=== PATIENT | female | born 1995 | race Caucasian/White ===

== ENCOUNTER → 2020-12-29 10:56 | Outpatient (BNVA) | payer MEDICAID, SELFPAY | PROVIDERS: Visit Provider Advanced Practice Midwife | DX: Z32.01 Encounter for pregnancy test, result positive (principal); Z36.3 Encounter for antenatal screening for malformations | CPT/HCPCS: 81025; 99202 ==

== ENCOUNTER → 2021-01-12 10:15 | Outpatient (BNVA) | payer MEDICAID, SELFPAY | PROVIDERS: Visit Provider Advanced Practice Midwife | CPT/HCPCS: 99212 ==

== ENCOUNTER 2021-01-14 10:16 | Outpatient (REF) | payer MEDICAID, SELFPAY ==
[2021-01-14 11:42] LABS: Syphilis Screen Nonreactive (Nonreactive)
[2021-01-14 11:46] LABS: HBsAGNum1 0.16 S/CO (0.00-0.99); HIV AB/AG Nonreactive (Nonreactive); HIV Num 1 0.05 S/CO (0.00-0.99); Hepatitis B Surface Antigen Negative (Negative)
[2021-01-14 11:51] LABS: ~HepC Num1 0.11 S/CO (0.00-0.79); ~Hepatitis C Antibody Nonreactive (Nonreactive)
[2021-01-14 13:45] LABS: Amphetamine Screen Urine Not Detected (Not Detect); Barbiturates, Urine Not Detected (Not Detect); Benzodiazepines Screen Urine Not Detected (Not Detect); Cannabinoid Screen Urine POSITIVE (Not Detect); Cocaine Screen Urine Not Detected (Not Detect); Opiate Screen Urine Not Detected (Not Detect); Phencyclidine Screen Urine Not Detected (Not Detect)
== END 2021-01-14 10:17 | disposition home or self-care (01) ==
LOC: HO.LAB 10:16
PROVIDERS: Visit Provider Advanced Practice Midwife
DX: Z32.01 Encounter for pregnancy test, result positive (principal)
CPT/HCPCS: 80307; 86762; 86780; 86787; 86803; 86850; 86886; 86900; 86901; 87086; 87340; 87389

== ENCOUNTER 2021-01-17 14:01 | Outpatient (REF) | payer OTHER, SELFPAY ==
--- NOTE | ~2021-01-17 | US_ITS ---
EXAMINATION: US OBSTETRICAL ULTRASOUND CLINICAL INFORMATION: Encounter for screening for malformations. No heart tone heard in office. COMPARISON: None. LMP: 10/24/2020. Gestational age by maternal dates is 12 weeks 1 day. Estimated date of delivery by maternal dates is 07/31/2021. TECHNIQUE: Transabdominal 1st trimester OB ultrasound. FINDINGS: There is a single intrauterine gestational sac with visible yolk sac, embryo/fetus, and cardiac activity. There is no significant subchorionic hemorrhage or hematoma. HR: 179 beats per minute. CRL (crown rump length): 1.26 cm (7 weeks 4 days +/- 4 days). REI (estimated date of delivery): 09/01/2021 +/- 4 days. MATERNAL ADNEXA: The right maternal ovary measures 2.7 x 3.5 x 2.8 cm. There is a 2.1 x 1.9 x 1.9 cm slightly complex cyst. The left maternal ovary measures 2.1 x 2 x 2.3 cm. There is no significant maternal adnexal mass. No maternal pelvic ascites. US/US OB <= 14 weeks fetus IMPRESSION: 1. Single intrauterine gestation with ultrasound gestational age of 7 weeks 4 days +/- 4 days. 2. Estimated date of delivery is 09/01/2021 +/- 4 days.
[2021-01-17 16:01] LABS: MANUAL DIFF FLAG NO
[2021-01-17 16:04] LABS: Basophils Absolute Auto 0.1 X10*3/uL (0.0-0.2); Basophils Percent Auto 0.5 % (0-2); Eosinophils Absolute Auto 0.2 X10*3/uL (0.0-0.4); Eosinophils Percent Auto 1.9 % (0-4); Hematocrit 37.7 % (37-47); Hemoglobin 13.2 g/dl (12.0-16.0); Imm Gran Abs Auto 0.04 X10*3/uL (0.00-0.03); Imm Gran Pct Auto 0.4 % (0.0-0.4); Lymphocytes Absolute Auto 3.1 X10*3/uL (1.2-4.9); Mean Corpuscular Hemoglobin 31.9 pg (27.0-33.0); Mean Corpuscular Volume 91.1 fL (80-98); Mean Platelet Volume 9.9 fL (9.4-12.3); Monocytes Absolute Auto 0.8 X10*3/uL (0.1-1.2); Monocytes Percent Auto 7.5 % (2-11); Neutrophils Absolute Auto 6.8 X10*3/uL (2.0-8.3); Neutrophils Percent Auto 61.7 % (45-73); Platelet Count 254 X10*3/uL (160-400); Red Blood Count 4.14 X10*6/uL (4.20-5.50); Red Cell Distribution Width 12.7 % (11.0-16.0)
[2021-01-18 09:50] LABS: CT PCR NOT DETECTED (Not Detect.); NG PCR NOT DETECTED (Not Detect.)
== END 2021-01-17 14:02 | disposition home or self-care (01) ==
LOC: HO.LAB 14:01
PROVIDERS: Visit Provider Advanced Practice Midwife
DX: O36.5910 Maternal care for other known or suspected poor fetal growth, first trimester, not applicable or unspecified (principal); O99.321 Drug use complicating pregnancy, first trimester; O26.891 Other specified pregnancy related conditions, first trimester; F12.90 Cannabis use, unspecified, uncomplicated; R10.2 Pelvic and perineal pain; Z20.2 Contact with and (suspected) exposure to infections with a predominantly sexual mode of transmission; Z3A.12 12 weeks gestation of pregnancy
CPT/HCPCS: 36415; 76801; 81003; 85025; 87491; 87591; 99212

== ENCOUNTER → 2021-02-24 08:32 | Outpatient (BNVA) | payer OTHER, SELFPAY | PROVIDERS: Visit Provider Advanced Practice Midwife | DX: O99.619 Diseases of the digestive system complicating pregnancy, unspecified trimester (principal); K59.00 Constipation, unspecified; Z3A.13 13 weeks gestation of pregnancy | CPT/HCPCS: 81003; 99212 ==

== ENCOUNTER 2021-02-25 10:56 | Outpatient (REF) | payer OTHER, SELFPAY ==
--- NOTE | ~2021-02-25 | US_ITS ---
EXAMINATION: OBSTETRICAL ULTRASOUND, FIRST TRIMESTER HISTORY: 25-year-old at 13.1 weeks of gestation NT screening COMPARISON: 01/17/2021 TECHNIQUE: Real time transabdominal imaging with color and M-mode Doppler. FINDINGS: A single, live IUP CRL of 78.7 mm c/w 14.0wks is noted. Heart Rate: 144 beats per minute. Normal yolk sac seen. NT was 1.33.mm. NB Present The embryo appears sonographically wnl for this GA. Both maternal ovaries are seen and appear normal. GESTATIONAL AGE: 1. Established GA: 13.1 wks 2. GA from [facility]: 14.0 wks ESTIMATED DATE OF DELIVERY: 1. Established REI: 09/01/2021 2. REI from [facility]: 08/26/2021 US/US OB 1T nuc measure IMPRESSION: 1. A single live IUP 2. Size equals dates 3. NT of 1.33 mm MFM Consultation: According to the patient, she has older brother born with isolated soft cleft palate. After the repair, he is doing well. I informed the patient that the isolated cleft palate is the multi genetic and multifactorial events. Since it was her brother, the risk to her fetus is no greater than that of the general population. Soft palate is not visible on ultrasound. MRI with REI of the modality that can visualize the soft palate with confidence. I reassured her that at the time of the survey at approximately 18-19 weeks, we should be able to detect majority of cleft lip and majority of hard palate defect. I reviewed the ultrasound findings along with significance of NT measurement. The NT of less than 3mm is generally reassuring. However, the sensitivity for T21 detection is only 60%. I reviewed the availability of serum aneuploidy screening which includes cell-free DNA and placental protein based tests. I discussed the sensitivity, false-positive rate, and other limitations associated with each test. I also reviewed the availability of invasive diagnostic tests that are associated small but definite risk of miscarriage. We also reviewed the differences between screening tests and diagnostic tests. After our discussion, she opted for the First trimester screening that is based on cell-free DNA or non-invasive testing (NIPT). The result will be faxed to your office in approximately 7 days. A follow up at 18-20 weeks for survey has been scheduled. Thank you very much for this referral. Total time 30 minutes. The time spent was devoted to counseling the patient about the disease and diagnosis, coordinating care including reviewing her records, pertinent lab data and studies, as well as discussing diagnostic evaluation and workup, plan therapeutic interventions and future disposition of care. This includes any additional research needed to obtain further information in formulating the plan of care of this patient. This note was generated with a voice recognition program. Please excuse any errors which may have been overlooked during my review of this note. Sometimes these errors may affect the content or meaning of a given sentence.
== END 2021-02-25 10:57 | disposition home or self-care (01) ==
LOC: HO.US 10:56
PROVIDERS: Visit Provider Advanced Practice Midwife
DX: Z36.82 Encounter for antenatal screening for nuchal translucency (principal)
CPT/HCPCS: 76813

== ENCOUNTER → 2021-03-24 08:37 | Outpatient (BNVA) | payer OTHER, SELFPAY | PROVIDERS: Visit Provider Advanced Practice Midwife | DX: Z34.92 Encounter for supervision of normal pregnancy, unspecified, second trimester (principal); Z3A.17 17 weeks gestation of pregnancy; Z36.3 Encounter for antenatal screening for malformations | CPT/HCPCS: 81003; 99212 ==

== ENCOUNTER 2021-04-01 08:30 | Outpatient (REF) | payer OTHER, SELFPAY ==
--- NOTE | ~2021-04-01 | US_ITS ---
EXAMINATION: US OBSTETRICAL CLINICAL INFORMATION: 25-year-old at 18.1 weeks of gestation Screening for anomaly COMPARISON: 02/25/2021 TECHNIQUE: Real-time transabdominal ultrasound was performed using C1-5 megahertz transducer. FINDINGS: A single, active, fetus is seen in breech presentation. The placenta is posterior without previa, and the amniotic fluid volume is wnl. MEASUREMENTS: 1. Biparietal Diameter: 4.2 cm; 18.5 wks 2. Occipital Frontal Diameter: 4.4 cm 3. Head Circumference: 16.5 cm; 19.2 wks 4. Abdominal Circumference: 14.3 cm; 19.5 wks 5. Femur Length: 2.93 cm; 19.1 wks 6. Humerus Length: 2.8 cm; 19.2 wks 7. Ulna Length: 2.5 cm; 19.0 wks 8. Lateral ventricle: 0.5 cm 9. Cerebellum: 1.9 cm; 19.4 wks 10. Cisterna Magna: 0.5 cm 11. Nuchal Fold: 3.2 mm 12. Heart Rate: 142 beats per minute Rt ovary: Unable to visualize Lt ovary: normal Cervical length 3.5 cm on T/A. GESTATIONAL AGE: 1. Established GA: 18.1 wks 2. GA from [facility]: 19.2 wks ESTIMATED DATE OF DELIVERY: 1. Established REI: 09/01/2021 2. REI from [facility]: 08/24/2021 ANATOMY: The visualized anatomy includes but not limited to: 1. Cranium: Normal 2. Intracranial anatomy: cavum septum pellucidi, lateral ventricles, choroid plexus, cerebellum, posterior fossa, third and fourth ventricles. 3. face: orbits, lip/palate, profile, nasal bone 4. Heart: four-chamber view of the heart, ventricular septum, foramen ovale, pulmonary vein, left and right outflow tracts, three-vessel view, 3 vessel trachea view, aortic and ductal arches, situs.. 5. Diaphragm: Normal 6. Abdominal wall: Normal 7. Cord Insertion: Normal 8. Spine: Cervical, thoracic, lumbar, sacral. 9. Stomach: Normal size and shape 10. Right Kidney: Normal 11. Left Kidney: Normal 12. 3 vessel cord: Normal 13. Upper extremity: Open hands, fifth digit. 14. Lower extremity: Tibia, fibula, bilateral feet. 15. Bladder: Normal 16. Genitalia: Male, patient aware US/US OB /maternal detail IMPRESSION: 1. Single, living, intrauterine with appropriate biometry. 2. Normal survey DISCUSSION: I reviewed today's ultrasound findings. We discussed the limitations of ultrasound in diagnosing aneuploidy and other congenital abnormalities. I reviewed the differences between screening test and diagnostic test. Amniocentesis was discussed and declined. She was informed that the baseline incidence of congenital abnormalities is approximately 3-5%. Not all these conditions are diagnosable in utero. RECOMMENDATIONS: 1. Follow-up when necessary. Thank you for allowing me to participate in her care. Total time 20 minutes. The time spent was devoted to counseling the patient about the disease and diagnosis, coordinating care including reviewing her records, pertinent lab data and studies, as well as discussing diagnostic evaluation and workup, plan therapeutic interventions and future disposition of care. This includes any additional research needed to obtain further information in formulating the plan of care of this patient. This note was generated with a voice recognition program. Please excuse any errors which may have been overlooked during my review of this note. Sometimes these errors may affect the content or meaning of a given sentence.
== END 2021-04-01 08:31 | disposition home or self-care (01) ==
LOC: HO.US 08:30
PROVIDERS: Visit Provider Obstetrics & Gynecology
DX: Z34.92 Encounter for supervision of normal pregnancy, unspecified, second trimester (principal); Z36.3 Encounter for antenatal screening for malformations
CPT/HCPCS: 76811

== ENCOUNTER → 2021-04-21 08:37 | Outpatient (BNVA) | payer OTHER, SELFPAY | PROVIDERS: Visit Provider Advanced Practice Midwife | DX: Z34.92 Encounter for supervision of normal pregnancy, unspecified, second trimester (principal); Z3A.21 21 weeks gestation of pregnancy | CPT/HCPCS: 81003; 99212 ==

== ENCOUNTER → 2021-05-19 08:12 | Outpatient (BNVA) | payer OTHER, SELFPAY | PROVIDERS: Visit Provider Advanced Practice Midwife | DX: Z34.92 Encounter for supervision of normal pregnancy, unspecified, second trimester (principal) | CPT/HCPCS: 99212 ==

== ENCOUNTER 2021-06-06 08:37 | Outpatient (REF) | payer OTHER, SELFPAY ==
[2021-06-06 10:14] LABS: Hemoglobin 12.6 g/dl (12.0-16.0); Mean Corpuscular HGB Conc 33.2 g/dl (31.0-35.0); Mean Corpuscular Hemoglobin 30.7 pg (27.0-33.0); Mean Corpuscular Volume 92.5 fL (80-98); Mean Platelet Volume 9.4 fL (9.4-12.3); Platelet Count 224 X10*3/uL (160-400); Red Blood Count 4.11 X10*6/uL (4.20-5.50); Red Cell Distribution Width 12.4 % (11.0-16.0); White Blood Count 9.7 X10*3/uL (4.8-10.8)
[2021-06-06 10:34] LABS: Glucose 1 Hour PP 50gm Dose 104 mg/dL (60-140)
[2021-06-06 11:02] LABS: Syphilis Screen Nonreactive (Nonreactive)
== END 2021-06-06 08:38 | disposition home or self-care (01) ==
LOC: HO.LAB 08:37
PROVIDERS: Visit Provider Advanced Practice Midwife
DX: Z34.92 Encounter for supervision of normal pregnancy, unspecified, second trimester (principal); Z20.2 Contact with and (suspected) exposure to infections with a predominantly sexual mode of transmission
CPT/HCPCS: 36415; 85027; 86780

== ENCOUNTER → 2021-06-16 08:09 | Outpatient (BNVA) | payer OTHER, SELFPAY | PROVIDERS: Visit Provider Advanced Practice Midwife | DX: O99.323 Drug use complicating pregnancy, third trimester (principal); F12.90 Cannabis use, unspecified, uncomplicated; Z3A.29 29 weeks gestation of pregnancy | CPT/HCPCS: 99212 ==

== ENCOUNTER → 2021-07-01 08:10 | Outpatient (BNVA) | payer OTHER, SELFPAY | PROVIDERS: Visit Provider Advanced Practice Midwife | DX: O99.213 Obesity complicating pregnancy, third trimester (principal); Z3A.31 31 weeks gestation of pregnancy | CPT/HCPCS: 81003; 99212 ==

== ENCOUNTER 2021-07-15 08:33 | Outpatient (REF) | payer OTHER, SELFPAY ==
--- NOTE | ~2021-07-15 | US_ITS ---
EXAMINATION: OBSTETRICAL ULTRASOUND, Follow up HISTORY: 25-year-old at the 33.1 weeks of gestation Size date discrepancy High BMI COMPARISON: 04/01/2021 TECHNIQUE: Real time transabdominal imaging with color and M-mode Doppler. PRESENTATION: Vertex PLACENTA LOCATION: Fundal AMNIOTIC FLUID: FELICE 11.2 MEASUREMENTS: 1. Biparietal Diameter: 8.8 cm; 25.6 wks 2. Head Circumference: 32.5 cm; 36.6 wks 3. Abdominal Circumference: 29.1 cm; 33.1 wks 4. Femur Length: 6.4 cm; 33.0 wks 5. Heart Rate: 146 beats per minute WEIGHT: EFW: 2244 grams (4 lbs 15 oz) -- 53 %. BIOPHYSICAL PROFILE: Motion: 2 Tone: 2 Breathin Amniotic Fluid: 2 Total score: 06/05 GESTATIONAL AGE: 1. Established GA: 33.1 wks 2. GA from A: 34.5 wks ESTIMATED DATE OF DELIVERY: 1. Established REI: 09/01/2021 2. REI from [facility]: 08/21/2021 US/US OB follow up IMPRESSION: 1. A single active fetus is in vertex presentation 2. Size equals dates 3. Biophysical profile of 06/05 Thank you very much for this referral. This note was generated with a voice recognition program. Please excuse any errors which may have been overlooked during my review of this note. Sometimes these errors may affect the content or meaning of a given sentence.
== END 2021-07-15 08:34 | disposition home or self-care (01) ==
LOC: HO.US 08:33
PROVIDERS: Visit Provider Advanced Practice Midwife
DX: O99.213 Obesity complicating pregnancy, third trimester (principal); Z3A.33 33 weeks gestation of pregnancy
CPT/HCPCS: 76816

== ENCOUNTER → 2021-07-20 10:48 | Outpatient (BNVA) | payer OTHER, SELFPAY | PROVIDERS: Visit Provider Advanced Practice Midwife | DX: Z34.83 Encounter for supervision of other normal pregnancy, third trimester (principal); Z3A.33 33 weeks gestation of pregnancy | CPT/HCPCS: 99212 ==

== ENCOUNTER 2021-08-03 08:52 | Outpatient (REF) | payer OTHER, SELFPAY ==
[2021-08-04 02:51] LABS: CT PCR NOT DETECTED (Not Detect.); NG PCR NOT DETECTED (Not Detect.)
[2021-08-04 10:37] LABS: BV Int Neg Control Negative (Negative); BV Int Pos Control Positive (Positive)
== END 2021-08-03 08:53 | disposition home or self-care (01) ==
LOC: HO.LAB 08:52
PROVIDERS: Visit Provider Advanced Practice Midwife
DX: Z34.93 Encounter for supervision of normal pregnancy, unspecified, third trimester (principal); Z20.2 Contact with and (suspected) exposure to infections with a predominantly sexual mode of transmission
CPT/HCPCS: 81003; 87081; 87480; 87491; 87510; 87591; 87660; 99212

== ENCOUNTER → 2021-08-10 08:44 | Outpatient (BNVA) | payer OTHER, SELFPAY | PROVIDERS: Visit Provider Advanced Practice Midwife | DX: Z34.83 Encounter for supervision of other normal pregnancy, third trimester (principal); Z3A.36 36 weeks gestation of pregnancy | CPT/HCPCS: 81003; 90471; 90715; 99212 ==

== ENCOUNTER → 2021-08-17 09:11 | Outpatient (BNVA) | payer OTHER, SELFPAY | PROVIDERS: Visit Provider Advanced Practice Midwife | DX: Z34.83 Encounter for supervision of other normal pregnancy, third trimester (principal); Z3A.37 37 weeks gestation of pregnancy | CPT/HCPCS: 81003; 99212 ==

== ENCOUNTER → 2021-08-24 08:29 | Outpatient (BNVA) | payer OTHER, SELFPAY | PROVIDERS: Visit Provider Advanced Practice Midwife | DX: Z34.83 Encounter for supervision of other normal pregnancy, third trimester (principal); Z3A.38 38 weeks gestation of pregnancy | CPT/HCPCS: 81003; 99212 ==

== ENCOUNTER → 2021-08-31 08:44 | Outpatient (BNVA) | payer OTHER, SELFPAY | PROVIDERS: Visit Provider Advanced Practice Midwife | DX: Z34.83 Encounter for supervision of other normal pregnancy, third trimester (principal); Z3A.39 39 weeks gestation of pregnancy | CPT/HCPCS: 81003; 99212 ==

== ENCOUNTER → 2021-10-12 10:48 | Outpatient (BNVA) | payer OTHER, SELFPAY | PROVIDERS: Visit Provider Advanced Practice Midwife | DX: Z30.09 Encounter for other general counseling and advice on contraception (principal); Z39.2 Encounter for routine postpartum follow-up | CPT/HCPCS: 99212 ==

== ENCOUNTER 2021-12-26 14:43 | Outpatient (REF) | payer OTHER, SELFPAY | END 2021-12-26 14:44 | disposition home or self-care (01) | LOC: HO.LAB 14:43 | PROVIDERS: Visit Provider Advanced Practice Midwife | DX: Z01.419 Encounter for gynecological examination (general) (routine) without abnormal findings (principal) | CPT/HCPCS: 81025; 88142 ==

== ENCOUNTER → 2023-01-01 13:06 | Outpatient (BNVA) | payer OTHER, SELFPAY | PROVIDERS: Visit Provider Advanced Practice Midwife | DX: Z13.89 Encounter for screening for other disorder (principal) ==

== ENCOUNTER 2023-04-03 13:43 | Outpatient (REF) | payer OTHER, SELFPAY ==
[2023-04-04 06:11] LABS: CT PCR NOT DETECTED (Not Detect.); NG PCR NOT DETECTED (Not Detect.)
[2023-04-04 12:37] LABS: BV Int Neg Control Negative (Negative); BV Int Pos Control Positive (Positive)
== END 2023-04-03 13:44 | disposition home or self-care (01) ==
LOC: HO.LNP 13:43
PROVIDERS: Visit Provider Advanced Practice Midwife
DX: N89.8 Other specified noninflammatory disorders of vagina (principal); Z20.2 Contact with and (suspected) exposure to infections with a predominantly sexual mode of transmission; Z30.9 Encounter for contraceptive management, unspecified
CPT/HCPCS: 0353U; 87480; 87510; 87660; 99212

== ENCOUNTER 2023-04-03 14:23 | Outpatient (REF) | payer OTHER, SELFPAY | END 2023-04-03 14:24 | disposition home or self-care (01) | LOC: HO.LAB 14:23 | PROVIDERS: Visit Provider Advanced Practice Midwife | DX: Z13.89 Encounter for screening for other disorder (principal) ==

== ENCOUNTER 2024-01-29 13:16 | Outpatient (AMB) | payer OTHER, SELFPAY ==
[2024-01-29 13:28] VITALS: BP 118/70; BMI 27.9
--- NOTE | 2024-01-29 13:28 | A.OFFVIS_ITS ---
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 She does not have a primary care provider she has no health concerns she currently is sexually active and she has a new partner who is not the father of her baby they generally use condoms but sometimes they just use withdrawal. She is wondering why her discharge is as much as it is and if that is normal. Full discussion took pace in this visit about the normal variation of cervical mucus and vaginal discharge and all of the factors that can influence it including timing in the cycle, addition of other partner secretions changes to discharge over lifetime and after childbirth and various changes in jeremias that can influence it both normal and abnormal. She is lost all of her ?baby weight? but she does not think she did anything different other than she is very busy working 2 jobs and parenting. [facility] Medical History COVID-19 vaccine administered Family History Mother COPD (chronic obstructive pulmonary disease) Father No problems noted. Maternal Grandmother Diabetes Maternal Grandfather Cardiac disease Brother No problems noted. Brother Asthma Paternal Grandmother No problems noted. Paternal Grandfather Lung abnormality Social History Household Members: Significant Other Both parents involved: Yes Alcohol intake: current Alcohol intake frequency: holidays/special occasions only Patient Tobacco Use Status: Never used Tobacco Substance Use Type: Marijuana Trauma History: none Special jim needs: No Agree to transfusion: Yes Gender identity: Female Female Reproductive History Menstrual Age of Menarche: 16 Duration of menses: 3-5 days Date of last menstrual period: 01/16/24 control method: none Total pregnancies: 2 Full term: 1 Date of last pap smear: 12/27/21 (negative,previous pap,2019,WNL) History of abnormal pap smear: No Physical Exam Vital Signs: Last Vital Signs BP 118/70 01/29/24 13:28 BMI result Body Mass Index 27.9 Assessment & Plan Assessment & Plan (1) Cervical cancer screening: Comment: 12/26/2021 Pap equals negative. Code(s): Z12.4 - Encounter for screening for malignant neoplasm of cervix (2) Well woman exam with routine gynecological exam: Code(s): Z01.419 - Encounter for gynecological examination (general) (routine) without abnormal findings (3) control counseling: Comment: Teaching done in detail about cycle awareness and signs and symptoms of ovulation and fertility and changes in discharge and how 1 feels. 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 She does not have a primary care provider she has no health concerns she currently is sexually active and she has a new partner who is not the father of her baby they generally use condoms but sometimes they just use withdrawal. She is wondering why her discharge is as much as it is and if that is normal. Full discussion took pace in this visit about the normal variation of cervical mucus and vaginal discharge and all of the factors that can influence it including timing in the cycle, addition of other partner secretions changes to discharge over lifetime and after childbirth and various changes in jeremias that can influence it both normal and abnormal. -----Discussed in this visit the following: healthy balanced diet, regular and consistent exercise, getting recommended health screens, doing the best she can for her particular health concerns, kegel exercises, pap smear screening and followup recommendations, mammography screening and SBE, normal changes in cycles in her life stage--- . Discussed the normal menstrual cycles, in terms of length of time for each part of the cycle, range of experiences for bleeding/periods, cramping and clots and the various ways of handling all of these including the various menstrual products available today and common use of non inflammatory medications such as ibuprofen to help with the cramping, and changes in vaginal and cervical discharge that occur throughout the changes in the menstrual cycle. Also discussed what is happening in the ovaries, with preparing to ovulate, ovulation, and what happens afterward as well. Discussed signs of ovulation including fertile appearing mucus, libido changes, breast changes, ovulatory pain and twinges, and the optimal /most risky times to become . Reviewed that menstrual cycles do not obey the printed c alendar, but rather follow the body's own cycle discussed what can sometimes happen if the cycle is interrupted by other health events such as anovulatory cycles. Discussed other metabolic changes that have a very profound effect on menstrual cycles including weight and the increased hormones that occur in that setting.Discussed our normal vaginal jeremias and the wide variety of abundant bacteria and fungus I and mucus components that may get up in a complex changing environment responding to anything that we put in and substances we may use for cleansing or wiping as well as sexual intercourse and any introduced bacteria and viruses. Discussed the hormonal shifts that happen through a normal menstrual cycle contributing to changes in the vaginal discharge from clear after the the. To clear and white slippery and abundant like egg white around the time of ovulation, followed by a thickening and drying of the scant white mucus afterwards until a new. Comes. All of these changes are responding to the hormonal shifts in our cycle. Also discussed the limitations of our testing, which are testing for the DNA of the following microbes. Currently, one of the tests we have includes a test that tests for Gardnerella, rios, and trichomoniasis (which is an STD). The other test we use tests concurrently for the presence of chlamydia and gonorrhea. As both of these are not normal vaginal jeremias, but instead are only sexually transmitted they are in fact in STD or STI, and do need to be treated as well as the partner needs to be treated The presence of Gardnerella does not necessarily mean that we have bacterial vaginosis but the syndrome of bacterial vaginosis includes the creamy adherent discharge that clings to the epithelial cells of the vaginal wall and coats the cells with bacteria and Im part fishy odor when the pH of the environment is altered by either menstrual flow urine or semen or other products. If this discharge is also accompanied by itching and discomfort and any other symptoms than it is worth treating . The presence of Rios alone does not necessarily mean a yeast infection but if there is itching burning vaginal redness and irritation then then that is an indication of a yeast infection and is definitely worth treating. Both of these conditions can be in part prevented by use of cotton under clothing, avoidance of tight clothing in general allowing air to vaginal areas and vulva avoidance of other soaps and scented products and chemicals, and condom use. In addition avoidance of menstrual sanitary products like pads and panty liners can contribute to better health as well. Patient to get portal info at the front end developer designer as well as any available info about PCC practices. She thought she might be interested in getting blood work for ST Is so I have ordered those those results will be available on the portal although we would certainly notify her about anything positive. Pap smear if normal should be resulted in a letter. Strongly suggested getting to know her cycle in detail and writing down the dates so she can follow trends over time. Orders: Orders Hepatitis B Surface Antigen Today Z01.419 - Encounter for gynecological examination (general) (routine) without abnormal findings, Z12.4 - Encounter for screening for malignant neoplasm of cervix, Z30.09 - Encounter for other general counseling and advice on contraception Hepatitis C Antibody Today Z01.419 - Encounter for gynecological examination (general) (routine) without abnormal findings, Z12.4 - Encounter for screening for malignant neoplasm of cervix, Z30.09 - Encounter for other general counseling and advice on contraception Syphilis Screen Today Z01.419 - Encounter for gynecological examination (general) (routine) without abnormal findings, Z12.4 - Encounter for screening for malignant neoplasm of cervix, Z30.09 - Encounter for other general counseling and advice on contraception HIV Ab/Ag Today Z01.419 - Encounter for gynecological examination (general) (routine) without abnormal findings, Z12.4 - Encounter for screening for malignant neoplasm of cervix, Z30.09 - Encounter for other general counseling and advice on contraception Coding Level of Care Code Est Pt Prev Care [id number]([id number]) Diagnoses Cervical cancer screening Z12.4 Well woman exam with routine gynecological exam Z01.419 control counseling Z30.09
== END 2024-01-29 14:09 | disposition home or self-care (01) ==
LOC: HO.HWSM 13:16
PROVIDERS: Visit Provider Advanced Practice Midwife
DX: Z12.4 Encounter for screening for malignant neoplasm of cervix (principal); Z01.419 Encounter for gynecological examination (general) (routine) without abnormal findings; Z30.09 Encounter for other general counseling and advice on contraception
CPT/HCPCS: 99395

== ENCOUNTER 2024-01-29 13:16 | Outpatient (REF) | payer OTHER, SELFPAY ==
[2024-01-30 02:58] LABS: CT PCR NOT DETECTED (Not Detect.); NG PCR NOT DETECTED (Not Detect.)
[2024-01-30 13:10] LABS: BV Int Neg Control Negative (Negative); BV Int Pos Control Positive (Positive)
== END 2024-01-29 13:17 | disposition home or self-care (01) ==
LOC: HO.LAB 13:16
PROVIDERS: Visit Provider Advanced Practice Midwife
DX: Z01.419 Encounter for gynecological examination (general) (routine) without abnormal findings (principal); Z20.2 Contact with and (suspected) exposure to infections with a predominantly sexual mode of transmission; Z11.3 Encounter for screening for infections with a predominantly sexual mode of transmission
CPT/HCPCS: 0353U; 87480; 87510; 87660; 88142; 99395

== ENCOUNTER 2025-02-05 11:28 | Outpatient (AMB) | payer OTHER, SELFPAY ==
[2025-02-05 11:32] VITALS: BP 110/60; BMI 26.6
--- NOTE | 2025-02-05 11:32 | MHC.OFFVIS ---
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 She started dating again somewhat recently. She also got tested in October as her son's father had come in contact with somebody with chlamydia with those tests were negative. She is open to being tested again today but does not feel she needs blood work for HIV or anything. Her son is 3 years old and very active throughout the day.. 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 She was on control pills as a teenager up until her but she feels that they made her crazy. She is unsure about what method she wants to use but wants to talk about them all. [facility] Medical History COVID-19 vaccine administered Family History Mother COPD (chronic obstructive pulmonary disease) Father No problems noted. Maternal Grandmother Diabetes Maternal Grandfather Cardiac disease Brother No problems noted. Brother Asthma Paternal Grandmother No problems noted. Paternal Grandfather Lung abnormality Social History Household Members: Significant Other Both parents involved: Yes Alcohol intake: current Alcohol intake frequency: holidays/special occasions only Patient Tobacco Use Status: Never used Tobacco Substance Use Type: Marijuana Trauma History: none Special jim needs: No Agree to transfusion: Yes Gender identity: Female Female Reproductive History Menstrual Age of Menarche: 16 Date of last menstrual period: 01/27/25 control method: none Total pregnancies: 1 Full term: 1 Date of last pap smear: 02/20/24 (negative) Physical Exam Vital Signs: Last Vital Signs BP 110/60 02/05/25 11:32 BMI result Body Mass Index 26.6 Const General: healthy appearing, comfortable, no acute distress, well developed and alert Nutritional Appearance: average body habitus Orientation/consciousness: patient oriented x3 Limitations: no limitations HEENT Head: Yes normocephalic Neck Neck: Yes normal visual inspection Chest Chest palpation & inspection: normal inspection of the chest Breast/axilla inspection: normal inspection of the breasts and normal inspection of the axillae Breast/axilla palpation: normal palpation of the breasts and normal palpation of the axillae Resp Effort & Inspection: normal respiratory effort GI Inspection: Yes normal to inspection, No Abdominal wall edema and No distended Palpation (GI): Soft to palpation and nontender Other: External exam within normal limits vagina pink and moist cervix multiparous pink smooth with healthy clear fertile type mucus cervix is long close thick mobile nontender uterus is small anteverted mobile nontender adnexa nontender good muscle tone. General: Yes bladder normal to palpation External Female Exam: normal external appearance and normal appearance of the urethra Speculum Exam - Vagina: normal appearance of the vagina, normal palpation and normal vaginal discharge Speculum Exam - Cervix: normal appearance of the cervix, normal palpation and nontender Bimanual exam- vagina & uterus: normal bimanual exam, normal palpation, uterine size normal, bladder normal to palpation, consistency normal, normal palpation, uterine mobility normal, uterine shape normal, No Cervical tenderness present, non-tender and no cervical motion tenderness Bimanual Exam- Adnexa, other: normal adnexae, no masses, normal and No adnexal tenderness Neuro General: patient oriented x3 Assessment & Plan Assessment & Plan (1) control counseling: Comment: Teaching done in detail about cycle awareness and signs and symptoms of ovulation and fertility and changes in discharge and how 1 feels. Code(s): Z30.09 - Encounter for other general counseling and advice on contraception Category: Medical (2) Well woman exam with routine gynecological exam: Code(s): Z01.419 - Encounter for gynecological examination (general) (routine) without abnormal findings Category: Medical (3) Cervical cancer screening: Comment: 12/26/2021 Pap equals negative.; 01/29/2024 Pap is negative. Code(s): Z12.4 - Encounter for screening for malignant neoplasm of cervix Category: Medical (4) Encounter for screening examination for sexually transmitted disease: Code(s): Z11.3 - Encounter for screening for infections with a predominantly sexual mode of transmission Category: Medical Plan -----Discussed in this visit the following: healthy balanced diet, regular and consistent exercise, getting recommended health screens, doing the best she can for her particular health concerns, kegel exercises, pap smear screening and followup recommendations, mammography screening and SBE, normal changes in cycles in her life stage--- .-I reviewed with the patient, all of the currently common used methods of control that are available. We reviewed how they work in the body, how they are taken, common side effects, uncommon side effects, precautions, and contraindications. -Discussed also factors that influence their effectiveness and use, and womens satisfaction with the method. -Discussed how each are used, and drawbacks of each method as well. -Methods covered included: condoms, control pills, control patches, control rings, Depo-Provera, Nexplanon, Mirena and Kyleena IUDs, and ParaGard IUDs. All of the above methods were covered in great detail including their side effect profiles and common experiences that women have and ways to mitigate against the negative experiences including attention to diet and exercise patient's with bleeding challenges that may occur her and efforts to time the initiation of the method to this start of the menstrual period. She is somewhat interested in the ParaGard from point of view it has no hormones but she is nervous about putting anything inside her. On balance then she feels that she might be willing to try the control pill again and see if it has the same effects that she had before that she did not like. If she does okay with them she will stay on them if not she will reconsider possibly a ParaGard. She had been on Sprintec before in the past, so I chose a different control pill for her this time though explained that all of them are low-dose and do have similar effects and just that some people react less well than others to being on hormones. This note is constructed using voice recognition software. While every effort has been made to ensure accuracy, offset printing operator errors may have been included. RTC 3 months for pill check. Medications: New desog-e.estradiol/e.estradiol 0.15-0.02 mgx21 /0.01 mg x 5 Start at the beginning of her next menses, then 1 pill every day... 1 tab PO DAILY 84 tabs 3RF Coding Level of Care Code Est Pt Prev Care 18-39y(25603) Diagnoses control counseling Z30.09 Well woman exam with routine gynecological exam Z01.419 Cervical cancer screening Z12.4 Encounter for screening examination for sexually transmitted disease Z11.3
== END 2025-02-05 12:30 | disposition home or self-care (01) ==
LOC: HO.HWS 11:28
PROVIDERS: Visit Provider Advanced Practice Midwife
DX: Z01.419 Encounter for gynecological examination (general) (routine) without abnormal findings (principal)
CPT/HCPCS: 99395; 99459

== ENCOUNTER 2025-02-05 11:28 | Outpatient (REF) | payer SELFPAY ==
[2025-02-06 13:40] LABS: Bacterial Vaginosis PCR NEGATIVE (Negative); Candida Group PCR NOT DETECTED (Not Detect); Candida glab krusei PCR NOT DETECTED (Not Detect); Trichomonas vaginalis PCR NOT DETECTED (Not Detect)
[2025-02-06 13:42] LABS: CT PCR NOT DETECTED (Not Detect.); NG PCR NOT DETECTED (Not Detect.)
== END 2025-02-05 11:29 | disposition home or self-care (01) ==
LOC: HO.LAB 11:28
PROVIDERS: Visit Provider Advanced Practice Midwife
DX: Z01.419 Encounter for gynecological examination (general) (routine) without abnormal findings (principal); N89.8 Other specified noninflammatory disorders of vagina; Z20.2 Contact with and (suspected) exposure to infections with a predominantly sexual mode of transmission
CPT/HCPCS: 81515; 87491; 87591; 99395; 99459

== ENCOUNTER 2025-05-14 10:51 | Outpatient (AMB) | payer OTHER, SELFPAY ==
--- NOTE | 2025-05-14 11:03 | A.OFFVIS_ITS ---
Vital Signs 05/14/25 11:09 05/14/25 11:17 Height 5 ft 7 in Weight 173 lb BMI 27.1 BP 122/84 116/72 Blood Pressure Location Rt brachial Position Sitting Intake Visit Reasons: 3m pill check (Geovanna jordan) Intake Note: Per patient since starting control has noticed migraines during time of ovulation. Does have hx of migraines but becoming more consistent. 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 Currently on combined OCPs and reports that her migraines have increased on this pill. Admits to migraines with aura. She denies any contraindications to control such as: history of DVT or pulmonary emboli, high blood pressure, liver disease, thrombolic disorders, Lupus, +BRIANA, breast cancer, or smoking. [facility] Medical History (Updated 05/14/25 @ 11:43 by Varsha Brumfield CNM) COVID-19 vaccine administered Family History Mother COPD (chronic obstructive pulmonary disease) Father No problems noted. Maternal Grandmother Diabetes Maternal Grandfather Cardiac disease Brother No problems noted. Brother Asthma Paternal Grandmother No problems noted. Paternal Grandfather Lung abnormality Social History Household Members: Significant Other Both parents involved: Yes Alcohol intake: current Alcohol intake frequency: holidays/special occasions only Patient Tobacco Use Status: Never used Tobacco Substance Use Type: Marijuana Trauma History: none Special jim needs: No Agree to transfusion: Yes Gender identity: Female Female Reproductive History Menstrual Age of Menarche: 16 Duration of menses: 8-10 days Date of last menstrual period: 05/06/25 control method: pills Review of Systems Const All systems reviewed & are unremarkable except as noted in HPI and below Endo Reports no additional complaints Physical Exam Vital Signs: Last Vital Signs BP 122/84 05/14/25 11:09 BMI result Body Mass Index 27.1 Const General: cooperative, healthy appearing and no acute distress Psych Appearance: well kempt Attitude: cooperative Thought process: Normal thought process present Assessment & Plan Assessment & Plan (1) Contraceptive surveillance: Code(s): Z30.40 - Encounter for surveillance of contraceptives, unspecified Qualifiers: Contraceptive type: pill Qualified Code(s): Z30.41 - Encounter for surveillance of contraceptive pills Plan Counseled regarding all control options that do not include estrogen. Use of [facility] efficacy chart reviewed. DC current product due to history of migraines with aura. She would prefer to maintain the use of a pill, Roxanne ordered, reviewed instructions for use, backup method, setting timing alert, what to do in missing a pill. The patient expressed understanding and agreement with the plan of care. All of her questions and concerns were addressed to the best of my ability. control hormone use warnings: go to ER if and loss of vision, blindness, severe headache, chest pain or difficulty breathing, severe abdominal pain, or any pain or swelling in an extremity. Pill check in 2-1/2-3 months. Call sooner if there is any concerns. Migraine information provided including list of triggers, things to avoid, diary for symptoms. Informed re: magnesium glycinate supplementation 200 mg at bedtime. Encouraged to find PCP for routine medical care. List to be provided for PCP options at [facility] [place]. This note is constructed using voice recognition software. While every effort has been made to ensure accuracy, division toll wire chief errors may have been included. Medications: New norethindrone (contraceptive) (Lynnette) 0.35 mg PO DAILY PRN 90 tabs 0RF contraceptive 90 days Discontinued desog-e.estradiol/e.estradiol 0.15-0.02 mgx21 /0.01 mg x 5 Start at the beginning of her next menses, then 1 pill every day... Discontinued Reason: No Longer Medically Relevant 1 tab PO DAILY 84 tabs 3RF Coding Level of Care Code Est Pt Level 3 (30855) Diagnoses Encounter for surveillance of contraceptive pills Z30.41 Contraceptive type: pill
[2025-05-14 11:09] VITALS: BP 122/84; BMI 27.1
[2025-05-14 11:17] VITALS: BP 116/72
--- NOTE | 2025-05-14 13:40 | A.OFFVIS_ITS ---
Vital Signs 05/14/25 11:09 05/14/25 11:17 Height 5 ft 7 in Weight 173 lb BMI 27.1 BP 122/84 116/72 Blood Pressure Location Rt brachial Position Sitting Intake Visit Reasons: 3m pill check (Geovnana ortega) Allergies No Known Allergies Allergy (Verified 05/14/25 11:09) [facility] Medical History (Updated 05/14/25 @ 11:43 by Varsha Brumfield CNM) COVID-19 vaccine administered Family History Mother COPD (chronic obstructive pulmonary disease) Father No problems noted. Maternal Grandmother Diabetes Maternal Grandfather Cardiac disease Brother No problems noted. Brother Asthma Paternal Grandmother No problems noted. Paternal Grandfather Lung abnormality Social History Household Members: Significant Other Both parents involved: Yes Alcohol intake: current Alcohol intake frequency: holidays/special occasions only Patient Tobacco Use Status: Never used Tobacco Substance Use Type: Marijuana Trauma History: none Special jim needs: No Agree to transfusion: Yes Gender identity: Female Female Reproductive History Menstrual Age of Menarche: 16 Duration of menses: 8-10 days control method: pills Physical Exam Vital Signs: Last Vital Signs BP 116/72 05/14/25 11:17 BMI result Body Mass Index 27.1 Results AMB Test Urine AMB Test Urine Negative Last Edit by Susie Anne LPN on 13:41 Results Reviewed Results Reviewed: Laboratory Last Values [facility] Negative 05/14/25 13:38 Assessment & Plan Assessment & Plan Orders: Orders AMB HCG Urine Test Today Z32.02 - Encounter for test, result negative Medications: New norethindrone (contraceptive) (Lynnette) 0.35 mg PO DAILY PRN 90 tabs 0RF contraceptive 90 days Discontinued desog-e.estradiol/e.estradiol 0.15-0.02 mgx21 /0.01 mg x 5 Start at the beginning of her next menses, then 1 pill every day... Discontinued Reason: No Longer Medically Relevant 1 tab PO DAILY 84 tabs 3RF Coding
== END 2025-05-14 11:37 | disposition home or self-care (01) ==
LOC: HO.HWS 10:51
PROVIDERS: Visit Provider Advanced Practice Midwife
DX: Z32.02 Encounter for pregnancy test, result negative (principal); Z30.41 Encounter for surveillance of contraceptive pills
CPT/HCPCS: 99213

== ENCOUNTER → 2025-05-14 10:51 | Outpatient (BNVA) | payer OTHER, SELFPAY | PROVIDERS: Visit Provider Advanced Practice Midwife | DX: Z30.41 Encounter for surveillance of contraceptive pills (principal) | CPT/HCPCS: 81025; 99212 ==

== ENCOUNTER 2025-08-19 10:14 | Outpatient (AMB) | payer OTHER, SELFPAY ==
[2025-08-19 10:23] VITALS: BP 102/60; BMI 26.0
--- NOTE | 2025-08-19 10:23 | MHC.OFFVIS ---
Vital Signs 08/19/25 10:23 Height 5 ft 7 in Weight 166 lb BMI 26.0 BP 102/60 Intake Visit Reasons: 3 MONTH PILL CHECK University Administrator: University Administrator Present Allergies No Known Allergies Allergy (Verified 08/19/25 10:24) Is last menstrual period known: Yes Last menstrual period: 07/28/25 HPI Comments Details: Patient is here for a follow up pill check, currently on norethindrone and reports her headaches have resolved. She wishes to continue with this brand. Currently not sexually active and denies any need for STD testing. She admits to occasionally taking the pill up to an hour late and will have some brief brown discharge at midcycle. She has a new 90 day supply on hand. [facility] Medical History Migraine with aura COVID-19 vaccine administered Family History Mother COPD (chronic obstructive pulmonary disease) Father No problems noted. Maternal Grandmother Diabetes Maternal Grandfather Cardiac disease Brother No problems noted. Brother Asthma Paternal Grandmother No problems noted. Paternal Grandfather Lung abnormality Social History Household Members: Significant Other Both parents involved: Yes Alcohol intake: current Alcohol intake frequency: holidays/special occasions only Patient Tobacco Use Status: Never used Tobacco Substance Use Type: Marijuana Trauma History: none Special jim needs: No Agree to transfusion: Yes Gender identity: Female Female Reproductive History Menstrual Age of Menarche: 16 Date of last menstrual period: 07/28/25 Review of Systems Const All systems reviewed & are unremarkable except as noted in HPI and below Endo Reports no additional complaints Physical Exam Vital Signs: Last Vital Signs BP 102/60 08/19/25 10:23 BMI result Body Mass Index 26.0 Const General: cooperative, healthy appearing and no acute distress Psych Appearance: well kempt Attitude: cooperative Thought process: Normal thought process present Assessment & Plan Assessment & Plan (1) Migraine with aura: Code(s): G43.109 - Migraine with aura, not intractable, without status migrainosus Category: Medical Qualifiers: Intractability: not intractable Plan: Continue with progesterone only OCPs due to migraines with aura. control hormone use warnings: go to ER if and loss of vision, blindness, severe headache, chest pain or difficulty breathing, severe abdominal pain, or any pain or swelling in an extremity. (2) Oral contraceptive pill surveillance: Code(s): Z30.41 - Encounter for surveillance of contraceptive pills Plan Reviewed backup method for missed pill if sexually active. 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 Refill to be sent in. The patient expressed understanding and agreement with the plan of care. All of her questions and concerns were addressed to the best of my ability. This note is constructed using voice recognition software. While every effort has been made to ensure accuracy, manager publishing errors may have been included. Medications: Refilled norethindrone (contraceptive) (Lynnette) 0.35 mg PO DAILY 84 tabs 1RF contraceptive 90 days Coding Level of Care Code Est Pt Level 3 (51822) Diagnoses Migraine with aura G43.109 Intractability: not intractable Oral contraceptive pill surveillance Z30.41
== END 2025-08-19 12:08 | disposition home or self-care (01) ==
LOC: HO.HWS 10:14
PROVIDERS: Visit Provider Advanced Practice Midwife
DX: G43.109 Migraine with aura, not intractable, without status migrainosus (principal); Z30.41 Encounter for surveillance of contraceptive pills
CPT/HCPCS: 99213

== ENCOUNTER → 2025-08-19 10:14 | Outpatient (BNVA) | payer OTHER, SELFPAY | PROVIDERS: Visit Provider Advanced Practice Midwife | DX: Z30.41 Encounter for surveillance of contraceptive pills (principal); G43.109 Migraine with aura, not intractable, without status migrainosus | CPT/HCPCS: 99212 ==